=== PATIENT | female | born 1990 | race Caucasian/White ===

== ENCOUNTER 2022-02-04 21:45 | Emergency (ER) | payer OTHER, MEDICAID, SELFPAY ==
[2022-02-04 21:46] VITALS: BP 123/68; PULSE 76; RESP 17; TEMP 37.2; O2SAT 97; BMI 19.8
[2022-02-04] MEDS: IBUPROFEN 400 MG TABLET PO (21:55)
--- NOTE | 2022-02-04 21:57 | DI.RAD.S_ITS ---
PROCEDURE: XR FOOT LT MIN 3V INDICATIONS: stepped on a nail TECHNIQUE: 3 views of the foot were acquired. COMPARISON: None. FINDINGS: Bones: No fractures or dislocations. No suspicious bony lesions. Soft tissues: No radiopaque foreign bodies. No discrete soft tissue gas identified. IMPRESSION: 1. No fractures or radiopaque foreign bodies. Dictated by: Adolph Mabry M.D. on 02/05/2022 at 0:12 Approved by: Adolph Mabry M.D. on 02/05/2022 at 0:13
[2022-02-05] MEDS: TET,DIPH,PERTUSS(ACELL),VAC/PF 0.5 ML SYRINGE IM (01:11)
--- NOTE | 2022-02-05 02:51 | ED_ITS ---
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 She was able to remove the nail there was a moderate amount of bleeding and she comes in for further evaluation. She does not know when her last tetanus shot was. She is not diabetic. She is complaining some pain at the forefoot but otherwise has no additional issues. Related Data Previous Rx's Medication Instructions Recorded vitamin-ferrous fumarate 1 cap PO QDAY #100 caps 11/08/16 65 mg iron-folic acid 1 mg capsule (Mynatal) ibuprofen 600 mg tablet 600 mg PO Q6HP PRN #30 tabs 06/18/17 [id number]-gkhrofaemzwsf-azwoochk 0 tab PO SEE INSTRUCTIONS #30 tabs 07/23/17 50 mg-325 mg-40 mg tablet norethindrone (contraceptive) 0.35 0.35 mg PO DAILY #3 ea 05/11/19 mg tablet levofloxacin 750 mg tablet 750 mg PO DAILY #4 tabs 02/05/22 Allergies Allergy/AdvReac Type Severity Reaction Status Date / Time No Known Drug Allergies Allergy Verified 02/04/22 21:51 Review of Systems Review of Systems Narrative: Remainder of complete review of systems is otherwise unremarkable except for that included in the HPI. Patient History Social History Smoking Status: Never smoker Smoking Status: Never smoker alcohol intake frequency: 0-2 drinks per day Substance Use Type: marijuana Exam Initial Vital Signs Initial Vital Signs: Vital Signs Temperature 98.9 F 02/04/22 21:46 Pulse Rate 76 02/04/22 21:46 Respiratory Rate 17 02/04/22 21:46 Blood Pressure 123/68 02/04/22 21:46 Pulse Oximetry 97 02/04/22 21:46 Oxygen Delivery Method 02/04/22 21:46 General: Alert appropriate in no acute distress Respiratory: Able to speak in full sentences, no obvious respiratory distress Skin: No obvious rashes, warm and dry Neurologic: Grossly intact no obvious asymmetries or abnormalities Psych: appropriate insight and affect, cooperative Extremity: Small puncture wound mid forefoot. There is some minor bruising appreciated on the dorsum of the foot but it does not appear the nail went completely through the foot. She does have full range of motion and is neurovascularly intact. There is no drainage or erythema. Minor swelling and significant tenderness at the puncture site itself. Course Orders Ordered: Discontinued Medications Diphtheria/Tetanus/Acell Pertussis (Tet,Diph,Pertuss(Acell),Vac/Pf 0.5 Ml Syringe) 0.5 ml IM .ONCE ONE Stop: 02/04/22 23:44 Last Admin: 02/05/22 01:11 Dose: 0.5 ml Documented By: TRINY Ibuprofen (Ibuprofen 400 Mg Tablet) 400 mg PO NOW ONE Stop: 02/04/22 21:52 Last Admin: 02/04/22 21:55 Dose: 400 mg Documented By: TRINY Ibuprofen (Ibuprofen 400 Mg Tablet) 400 mg PO NOW ONE Stop: 02/05/22 03:02 Last Admin: 02/05/22 03:21 Dose: 400 mg Documented By: BAY Levofloxacin (Levofloxacin 250 Mg Tablet) 750 mg PO NOW ONE Stop: 02/05/22 03:11 Last Admin: 02/05/22 03:21 Dose: 750 mg Documented By: BAY Oxycodone/Acetaminophen (Oxycodone/Acetaminophen 5/325 Tablet) 1 tab PO NOW ONE Stop: 02/05/22 03:02 Last Admin: 02/05/22 03:21 Dose: 1 tab Documented By: BAY Oxycodone/Acetaminophen (Oxycodone/Apap 5/325 Prepack) 1 bottle MISC SEEINSTR ONE Stop: 02/05/22 03:02 Last Admin: 02/05/22 03:20 Dose: 1 bottle Documented By: BAY Vital Signs Vital signs: Vital Signs - 8 hr 02/04/22 21:46 Temperature 98.9 F Pulse Rate 76 Respiratory Rate 17 Blood Pressure 123/68 Pulse Oximetry 97 Oxygen Delivery Method Room Air MDM - Extremity Injury (Lower) Imaging Data X-ray foot: Radiologist's Impression: FINDINGS:? ? Bones:? No fractures or dislocations.? No suspicious bony lesions.? ? Soft tissues:? No radiopaque foreign bodies.? No discrete soft tissue gas identified.? ? ? IMPRESSION:? ? 1. No fractures or radiopaque foreign bodies. ? ? Dictated by: Adolph Mabry M.D. on 02/05/2022 at 0:12 ? ? MDM Narrative Medical decision making narrative: Otherwise healthy 31-year-old woman with framing nail puncture ring through of boot sock into the dorsum of the foot with no significant abnormalities on x-ray but moderate tenderness and swelling on physical exam. Tetanus status is updated. Will have her complete 5 days of Levaquin for infection prophylaxis. Discussed appropriate pain control an anticipated course of recovery. Questions are answered and she is safe for home discharge Discharge Plan Departure Patient Disposition: Home Clinical Impression: Puncture wound of foot Qualifiers: Encounter type: initial encounter Laterality: left Qualified Code(s): S91.332A - Puncture wound without foreign body, left foot, initial encounter Instructions: DI for Puncture Wound Activity Restrictions/Additional Instructions: Thank you for coming in today Your tetanus status was updated Your x-ray did not show any foreign bodies or broken bones in your foot. On exam it does not look like the nail went completely through your foot however a suspect that there is a bit of bleeding in the middle of your foot which is causing the extra pain and the bruising that were starting to see on the top of your foot. Because it was a work site, work boot and a deep wound, I am going to suggest 5 days of levofloxacin, and antibiotic. You were given the 1st dose in the emergency department a prescription for 4 additional days. Using 400 mg of ibuprofen (2 gcmu-rnh-daioqsb pills) and 1 Tylenol every 6 hours can be very helpful in controlling pain. For severe pain you can add 1 Percocet to this. Keeping her foot elevated will certainly help. Do expect some pain and tenderness at the site of your tetanus shot and more swelling over your foot and likely more bruising. Using a hard soled shoe so that your foot has as little flexion as possible will likely provide the most comfort for you Should you have red streaks coming from the wound, any discharge from the wound, increasing warmth redness pain or swelling around the wound or at the middle of your foot you do need to come back to the emergency department Prescriptions: New levofloxacin 750 mg tablet 750 mg PO DAILY Qty: 4 0RF No Action vit-iron fum-folic ac [Mynatal] 1 EACH capsule 1 cap PO QDAY Qty: 100 3RF ibuprofen 600 MG tablet 600 mg PO Q6HP PRNQty: 30 1RF mcdjsnebzh-bphcpuckhlrde-ziuu 1 EACH tablet 0 tab PO SEE INSTRUCTIONS Qty: 30 3RF norethindrone (contraceptive) 0.35 mg tablet 0.35 mg PO DAILY Qty: 3 2RF Visit Report Forms: Patient Portal/API
[2022-02-05] MEDS: OXYCODONE/APAP 5/325 PREPACK 1 BOTTLE MISC (03:20)
[2022-02-05] MEDS: OXYCODONE/ACETAMINOPHEN 5/325 TABLET 1 TAB PO (03:21)
[2022-02-05] MEDS: levoFLOXacin 250 MG TABLET 750 MG PO (03:21)
[2022-02-05] MEDS: IBUPROFEN 400 MG TABLET PO (03:21)
== END 2022-02-05 03:29 | disposition home or self-care (01) ==
PROVIDERS: Emergency Provider Emergency Medicine
DX: S91.332A Puncture wound without foreign body, left foot, initial encounter (principal); W45.0XXA Nail entering through skin, initial encounter; Z23 Encounter for immunization
CPT/HCPCS: 73630; 90471; 99283; 99284; 90715

== ENCOUNTER 2022-02-15 12:37 | Emergency (ER) | payer OTHER, MEDICAID, SELFPAY ==
[2022-02-15 12:44] VITALS: BP 133/85; PULSE 82; RESP 16; TEMP 36.7; O2SAT 98; BMI 19.8
--- NOTE | 2022-02-15 14:24 | PC.NURSE ---
Patient has a splint with dolly wrap in place, unable to assess ankle at this time beyond cap refill. Given ice pack to place behind knee.
--- NOTE | 2022-02-15 14:54 | ED_ITS ---
HPI - Extremity Injury (Lower) General Chief Complaint: Extremity Injury, Lower Stated Complaint: broke heel last night, cant get rid of pain Time Seen by Provider: 02/15/22 14:44 Source: patient Mode of arrival: Ambulatory History of Present Illness HPI Narrative: Patient here for continued left heel pain. She broke her calcaneus yesterday. Seen at [facility] ER yesterday. She fell off her roof. Landed on her left heel. She had multiple x-rays including the spine. Her case was reviewed with [facility]. She has appointment in March with their surgical services. Patient was placed in a compression splint. This was taken down to the skin here. For evaluation as patient states she felt uncomfortable in the splint. Patient here with boyfriend. Related Data Previous Rx's Medication Instructions Recorded vitamin-ferrous fumarate 1 cap PO QDAY #100 caps 11/08/16 65 mg iron-folic acid 1 mg capsule (Mynatal) ibuprofen 600 mg tablet 600 mg PO Q6HP PRN #30 tabs 06/18/17 [id number]-jtelgjpvjqrry-cczzkxka 0 tab PO SEE INSTRUCTIONS #30 tabs 07/23/17 50 mg-325 mg-40 mg tablet norethindrone (contraceptive) 0.35 0.35 mg PO DAILY #3 ea 05/11/19 mg tablet levofloxacin 750 mg tablet 750 mg PO DAILY #4 tabs 02/05/22 Allergies Allergy/AdvReac Type Severity Reaction Status Date / Time No Known Drug Allergies Allergy Verified 02/15/22 12:54 Review of Systems Review of Systems Narrative: GENERAL: Denies chills, fatigue, malaise, fever, sweats. HEENT: Denies sinus pain, ear pain, sore throat RESPIRATORY: Denies dyspnea, cough CARDIOVASCULAR: Denies chest pain, palpitations GASTROINTESTINAL: Denies nausea, vomiting, abdominal pain : Denies dysuria, frequency, hematuria MUSCULOSKELETAL: Positive for muscle or bony pain SKIN: Denies rash, skin lesions NEUROLOGIC: Denies weakness, numbness ROS Unobtainable: All systems reviewed & are unremarkable except as noted in HPI and below Patient History Social History Smoking Status: Never smoker Smoking Status: Never smoker alcohol intake frequency: 0-2 drinks per day Substance Use Type: marijuana Exam Narrative Exam Narrative: GENERAL: in no distress, not toxic not dyspneic HEAD: Normocephalic. EYES: Pupils equal round No scleral icterus. EXTREMITIES: No gross deformities. Examination left lower extremity. Compression splint/dressing was removed to the skin. Nontender knee and ankle. No gross deformity. There is bruising at the left heel. Skin is intact. There is no blistering. No ulcerations. Strong pedal pulse with light touch intact to foot and toes. Foot is warm soft and pink. NEURO: AOx4. SKIN: Warm and dry PSYCH: Not anxious, is cooperative Initial Vital Signs Initial Vital Signs: Vital Signs Temperature 98.1 F 02/15/22 12:44 Pulse Rate 82 02/15/22 12:44 Respiratory Rate 16 02/15/22 12:44 Blood Pressure 133/85 02/15/22 12:44 Pulse Oximetry 98 02/15/22 12:44 Oxygen Delivery Method 02/15/22 12:44 Procedures Orthopedic Splinting/Casting Injury #1: Time of procedure: 16:04 Side: left Lower Extremity Injury Location: foot Lower Extremity Immobilizer: posterior splint Post splinting neuro exam: intact Post splinting vascular exam: intact Placed by: Provider Course Course Course Narrative: No new issues during course of stay Orders Ordered: Discontinued Medications Hydromorphone HCl (Hydromorphone 1 Mg Inj) 2 mg IM NOW ONE Stop: 02/15/22 14:54 Last Admin: 02/15/22 15:07 Dose: 2 mg Documented By: TERRIE Ondansetron HCl (Ondansetron 4 Mg Odt) 4 mg SL NOW ONE Stop: 02/15/22 14:54 Last Admin: 02/15/22 15:06 Dose: 4 mg Documented By: TERRIE Reevaluation(s) Reevaluation #1: Patient tolerated wrist splinting with posterior splint very well. She has crutches at home. Patient and boyfriend do desire new referral to Orthopedics from our group. Time: 16:04 Consultations Consultation #1: Spoke with our Orthopedics on-call, Dr. Tapia, splint can be replaced with posterior splint. Remain nonweightbearing. Patient to follow up with [facility] orth[facility] as planned. Time: 15:17 Vital Signs Vital signs: Vital Signs - 8 hr 02/15/22 12:44 02/15/22 16:07 Temperature 98.1 F Pulse Rate 82 87 Respiratory Rate 16 18 Blood Pressure 133/85 151/87 H Pulse Oximetry 98 99 Oxygen Delivery Method Room Air Room Air MDM - Extremity Injury (Lower) Differential Diagnosis Differential diagnosis: Likely other (Calcaneal fracture/splint adjustment/change) MDM Narrative Medical decision making narrative: Appropriate for discharge home. Patient needed splint change. She is more comfortable in ortho glass. She already has prescription for pain medication prescribed by previous ER visit yesterday. Return precautions reviewed with her. Boyfriend here at bedside to drive. No new imaging indicated. Discharge Plan Departure Patient Disposition: Home Clinical Impression: Aftercare for cast or splint check or change Instructions: How to Take Care of Your Splint, DI for Calcaneus Fracture Activity Restrictions/Additional Instructions: No driving operating machinery today or when taking prescribed pain medication. Please see [facility] as scheduled. Be sure to use crutches when ambulating. Return if worse if any questions or concerns. Or you may call Dr. Tapia with orthopedics at this location for follow-up Prescriptions: No Action vit-iron fum-folic ac [Mynatal] 1 EACH capsule 1 cap PO QDAY Qty: 100 3RF ibuprofen 600 MG tablet 600 mg PO Q6HP PRNQty: 30 1RF tkqcolwmpp-fvcstozrvykzb-bgmi 1 EACH tablet 0 tab PO SEE INSTRUCTIONS Qty: 30 3RF norethindrone (contraceptive) 0.35 mg tablet 0.35 mg PO DAILY Qty: 3 2RF levofloxacin 750 mg tablet 750 mg PO DAILY Qty: 4 0RF Referrals: Radha Tapia MD [Physician] - Visit Report Forms: Patient Portal/API
[2022-02-15] MEDS: ONDANSETRON 4 MG ODT SL (15:06)
[2022-02-15] MEDS: HYDROMORPHONE 1 MG INJ 2 MG IM (15:07)
[2022-02-15 16:07] VITALS: BP 151/87; PULSE 87; RESP 18; O2SAT 99
== END 2022-02-15 16:09 | disposition home or self-care (01) ==
PROVIDERS: Emergency Provider Emergency Medicine
DX: M25.572 Pain in left ankle and joints of left foot (principal); Z47.89 Encounter for other orthopedic aftercare; W13.2XXA Fall from, out of or through roof, initial encounter
CPT/HCPCS: 96372; 99283; J1170

== ENCOUNTER → 2022-08-15 13:55 | Oncology outpatient (ONC) | payer OTHER, MEDICAID, SELFPAY ==
[2022-08-15] MEDS: LACTATED RINGERS 1,000 ML 1000 ML IV (14:30)
[2022-08-15] MEDS: ONDANSETRON 4 MG/2 ML INJ IV (14:50)
[2022-08-15 14:58] VITALS: BP 107/50; PULSE 51; RESP 16; TEMP 37.1; O2SAT 99
--- NOTE | 2022-08-15 17:53 | PC.NURSE ---
Tolerated IV fluid bolus and IV Zofran without adverse effect. Left infusion room in no apparent distress, ambulatory.
== END ==
LOC: ONC 14:00
PROVIDERS: Visit Provider Internal Medicine Hematology & Oncology
DX: O21.1 Hyperemesis gravidarum with metabolic disturbance (principal)
CPT/HCPCS: 96361; 96374; J2405

== ENCOUNTER → 2022-08-23 12:06 | Outpatient (CLI) | payer OTHER, MEDICAID, SELFPAY ==
--- NOTE | 2022-08-23 12:07 | DI.US.S_ITS ---
PROCEDURE: US OB <= 14 WEEKS FETUS INDICATIONS: dating and viability OUTSIDE/PRIOR DATING DATA: Last menstrual period (LMP): 06/01/22 LMP-based estimated date of delivery (DHRUV): 03/08/23. First dating scan (date and location): This study. Estimated date of delivery (DHRUV) from first dating scan: 03/02/23. TECHNIQUE: Real-time scanning was performed of the fetus and maternal pelvic organs, with image documentation. Endovaginal scanning was also performed to better visualize the fetus and maternal ovaries. COMPARISON: None. FINDINGS: Embryo: [place]-rump length 6.3 cm correlates with a gestational age of 12 weeks 5 days, +/-7 days. Heart rate: 160 Maternal organs: Ovaries normal considering gestational status. IMPRESSION: Single living intrauterine gestation with delivery date projected to be centered on 03/02/23, +/-7 days. Follow-up anatomic survey We strive to produce accurate, complete, and clear reports of imaging services. To assist us in improving patient care, this report was composed using standard report templates and voice recognition software. Therefore, it may contain abnormal punctuation, insertions and/or omissions. Occasional wrong-word or sound-alike substitutions may occur. Though we review the report and make efforts to correct it, we do recommend that the report be read carefully in proper context to recognize any text inaccuracies. Dictated by: Kenneth Apodaca M.D. on 08/23/2022 at 14:21 Approved by: Kenneth Apodaca M.D. on 08/23/2022 at 14:23
== END ==
PROVIDERS: Referring Provider Obstetrics & Gynecology; Visit Provider Obstetrics & Gynecology
DX: Z3A.12 12 weeks gestation of pregnancy; Z36.87 Encounter for antenatal screening for uncertain dates
CPT/HCPCS: 76801